=== PATIENT | male | born 1965 | race Caucasian/White ===

== ENCOUNTER 2024-10-04 07:00 | Day surgery (SDC) | payer BC, SELFPAY | END 2024-10-04 09:25 | disposition home or self-care (01) | LOC: CATH 07:00 | PROVIDERS: ATTENDING PHYSICIAN Internal Medicine Cardiovascular Disease; FAMILY PHYSICIAN Family Medicine; OTHER PHYSICIAN Internal Medicine Cardiovascular Disease | DX: I48.91 Unspecified atrial fibrillation (principal); I08.3 Combined rheumatic disorders of mitral, aortic and tricuspid valves; R93.1 Abnormal findings on diagnostic imaging of heart and coronary circulation; Z79.01 Long term (current) use of anticoagulants | CPT/HCPCS: 93312; 93320; 93325 ==

== ENCOUNTER → 2024-10-11 12:00 | Outpatient (REF) | payer BC, SELFPAY | LOC: DHSLP 12:00 | PROVIDERS: ATTENDING PHYSICIAN Internal Medicine Cardiovascular Disease; FAMILY PHYSICIAN Family Medicine | DX: G47.30 Sleep apnea, unspecified (principal); R06.83 Snoring | CPT/HCPCS: 95800 ==

== ENCOUNTER 2024-11-21 07:12 | Day surgery (SDC) | payer BC, SELFPAY ==
--- NOTE | 2024-11-25 13:00 | ITS.CL.CARDI ---
Shuttle Repairer - Cardioversion
Cardioversion
Procedure Report:
Date of Procedure: 11/21/24
Procedure: Cardioversion
Indication: Symptomatic atrial fibrillation
Performing Physician: Katherine Haji DO [facility]
Anticoagulation: Eliquis
Preprocedure transesophageal echocardiogram:
Mildly reduced left ventricular systolic function with global hypokinesis.
Left ventricular ejection fraction visually estimated 45%
Normal right ventricular size with low normal RV systolic function.
Biatrial dilatation
Left atrial appendage without definite thrombus
Mild mitral regurgitation
Trace tricuspid regurgitation
Trileaflet, mildly sclerotic aortic valve with trace aortic regurgitation
Estimated pulmonary artery systolic pressure 30 mmHg assuming a right atrial pressure of 3 mmHg.
Intact interatrial septum without shunt by color-flow Doppler.
Compared to prior transesophageal echocardiogram dated 10/04/2024, LV ejection fraction remains similar, previously estimated 45-50%. Left atrial appendage findings similar however following interrogation of the left atrial appendage in multiplane
2D views and 3D views, no definite left atrial appendage thrombus identified. Okay to proceed with planned cardioversion
Technique: The patient was brought to the holding area. Signed informed consent was obtained. A time out was called and performed. The patient was anesthetized by the anesthesia service. Transesophageal echocardiogram without definite left atrial
appendage thrombus. Anticoagulation status was reviewed and appropriate. R2 pads were placed anteriorly and posteriorly. A 200 J synchronized biphasic shock restored normal sinus rhythm without significant bradycardia. There were no complications.
Conclusion: Uncomplicated cardioversion from atrial fibrillation to sinus rhythm.
Recommendation: Routine post cardioversion care. Continue [facility] anticoagulation.
== END 2024-11-21 10:35 ==
LOC: CATH 07:12
PROVIDERS: ATTENDING PHYSICIAN Internal Medicine Cardiovascular Disease
DX: I48.91 Unspecified atrial fibrillation (principal); I08.3 Combined rheumatic disorders of mitral, aortic and tricuspid valves; Z79.01 Long term (current) use of anticoagulants; E78.2 Mixed hyperlipidemia
CPT/HCPCS: 93312; 93320; 93325; 92960; 93005

== ENCOUNTER 2025-02-26 08:54 | Day surgery (SDC) | payer BC, SELFPAY ==
[2025-01-31 13:18] LABS: % Basophils 0.6 % (0-2); % Eosinophils 1.5 % (0-6); % Immature Granulocytes 0.2 % (0-0.5); % Lymphocytes 28.6 % (20.5-51.1); % Monocytes 9.3 % (1.7-9.3); % Neutrophils 59.8 % (42.2-75.2); Absolute Basophils 0.1 10^3/uL (0-0.2); Absolute Eosinophils 0.1 10^3/uL (0-0.7); Absolute Lymphocytes 2.3 10^3/uL (1.2-3.4); Absolute Monocytes 0.8 10^3/uL (0.1-0.6); Absolute Neutrophils 4.9 10^3/uL (1.4-6.5); Hematocrit 43.6 % (39.0-52.0); Hemoglobin 14.4 g/dL (13.0-18.0); Mean Corpuscular Hgb 28.8 pg (27.0-31.0); Mean Corpuscular Volume 87.2 fL (80.0-94.0); Mean Platelet Volume 9.9 fL (7.4-10.4); Nucleated Red Blood Cells % 0 % (-); Platelet Count 248 10^3/uL (130-400); Red Cell Dist. Width 12.7 % (11.5-14.5); White Blood Cell Count 8.2 10^3/uL (4.8-10.8)
[2025-01-31 13:30] LABS: PT 14.5 Sec (11.4-14.6)
[2025-01-31 13:32] LABS: ALT (SGPT) 19 U/L (0-50); AST (SGOT) 22 U/L (17-59); Albumin 4.4 g/dl (3.5-5.0); Alkaline Phosphatase 109 U/L (38-126); Blood Urea Nitrogen 20 mg/dl (9-20); Calcium 9.4 mg/dl (8.4-10.2); Carbon Dioxide 31 mmol/L (22-30); Chloride 105 mmol/L (98-107); Estimated Creatinine Clearance 96 ml/min; Glucose 91 mg/dl (70-99); Magnesium 2.1 mg/dl (1.6-2.3); Potassium 4.6 mmol/L (3.5-5.1); Sodium 139 mmol/L (135-145); Total Bilirubin 0.3 mg/dl (0.2-1.3); Total Protein 7.4 g/dl (6.3-8.2); eGFR > 60.00
[2025-02-26] VITALS (13 sets, daily range): BP systolic 100–128; BP diastolic 68–82
--- NOTE | 2025-02-26 11:29 | ITS.CL.ABL ---
Electrotyper - Ablation
Ablation
Procedure Report:
Primary Care: Dr Augustin Sarkar
Procedure Date: 02/26/2025
Patient History:
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
See H&P for complete details.
Indication:
Symptomatic persistent AF
Cardiomyopathy
Arrhythmia Specific History:
Prior Medical Therapies for Rate and Rhythm Control:
X Beta-tito
[ ] Calcium channel-tito
[ ] Amiodarone
[ ] Dronederone
[ ] Sotalol
[ ] Flecainide
[ ] Dofetilide
[ ] Options limited by bradycardia
[ ] Options limited by comorbid renal disease
Prior Procedural Therapies for AF/AFL:
X Cardioversion
[ ] Pulmonary Vein Isolation
[ ] Posterior Wall Isolation
[ ] Additional lines (Specify)
[ ] Surgical Deutsch-MAZE or PVI (Specify)
Procedure Performed:
X AF ablation procedure (66966) -- includes LA/CS pacing, trans-septal, 3D mapping, + ICE
[ ] +IV drug (31382)
[ ] +Other Arrhythmia (48168)
X +Other AF Line/ablation (86081 x2) -- Floor line, roof line, and posterior wall
Risks and expected recovery has been explained in detail. Alternative options have been explored, and in a shared-decision making fashion we have decided that this was the most appropriate procedure.
Method
NPO status confirmed. Grounding pad applied. Defibrillator pads applied. Continuous surface ECG, pulse oximetry, and blood pressure were monitored. Procedure was performed under general anesthesia, with anesthesia services.
Both groins were clipped, prepped with Chloraprep, and draped in sterile fashion. Time out was called. Local anesthesia administered with bupivacaine. The right femoral vein was accessed for catheter placement, using ultrasound guidance (images
saved to record), micro-puncture needle/wire, and modified seldinger technique. 3 sheaths were placed. The following catheters were used:
[ ] Tacticath SE (D/F Curve) ablation catheter
X Viewflex 9Fr ICE catheter
X Inquiry decapolar 6Fr diagnostic catheter
[ ] CRD Hex 6Fr
[ ] Arctic Front Advance Cryoballoon ([ ]28mm[ ]23mm)
[ ] Achieve Advance mapping catheter ([ ]15mm[ ]20mm)
X FlexCath Contour 10 Fr with PulseSelect PFA Catheter
X Advisor HD Grid Mapping Catheter, SE
[ ] AcusTransGenRx AcuNav 8 Fr ICE catheter
[ ]Other: [ ]
Intracardiac ultrasound (ICE) was carefully advanced into the right atrium to guide sheath placement over a J-wire, catheter placement, guide trans-septal puncture, identify potential complications, identify anatomic structures and ensure proper
contact between ablation catheter and tissue.
Heparin was given prior to trans-septal puncture. Heparin was given to achieve and maintain a target ACT of 300-400 seconds throughout the procedure.
Trans-septal access was performed under ICE guidance. The trans-septal puncture was performed with a SafeSept wire through a Brockenbrough needle assembly through the steerable sheath. The wire was visualized as it entered the LSPV and system
advanced under ICE guidance and fluoroscopy into the LA. The Brockenbrough needle assembly, SafeSept wire and sheath dilator were removed under negative pressure. LA pressure was measured and recorded.
ICE and 3D mapping was performed to identify relevant cardiac structures. A careful 3D map was created to assess for regions of low-voltage and abnormal electrogram signals using HD grid mapping catheter and PulseSelect catheter. Additional mapping
was performed as outlined below.
Prior to ablation, glycopyrrolate was provided. PulseSelect catheter was advanced over J-wire to the ostium of each vein. Pulmonary vein isolation was performed with ostial and antral lesions in a circumferential manner. Contact was visualized via
EAM, ICE, fluoroscopy, and EGM signals. Posterior wall isolation was performed by anchoring the J-wire within the pulmonary vein and placing the PulseSelect catheter in contact with the posterior wall as visualized by aforementioned methods. During
ablation, patient went into rapid atrial fibrillation with heart rates in the 190s and synchronized direct-current cardioversion was performed at 200 J with islam of sinus rhythm which maintained the remainder of the procedure. Following
completion of ablation lesions, a post-ablation voltage/activation map was performed in sinus rhythm. Entrance and exit block were confirmed for each vein and the posterior wall.
Catheter and sheath were removed from the left atrium and post-ablation intracardiac echo evaluation was consistent with pre-ablation with no changes and no pericardial effusion and there is no left atrial thrombus or left ventricle thrombus seen.
Electrophysiology study was performed. Hemostasis was obtained with Vascade for each sheath and with manual pressure. Protamine was used for reversal.
Estimated Blood Loss
5 mL
Complications
None
Fluoroscopy: 2.3 minutes; 5.44 mGy; DAP 1.52
LA Pressure: Pre 4 mmHg, post 9 mmHg
Baseline Intervals:
Rhythm: SR
NC: 111 ms
QRS: 127 ms
QT: 435 ms
QTc: 473 ms
A-A: 844 ms
R-R: 844 ms
Post-Procedure Intervals:
NC: 103 ms
QRS: 93 ms
QT: 425 ms
QTc:438 ms
A-A: 943 ms
R-R: 943 ms
AVWB: 320 ms
AERP: 600/270 ms
Recommendations
- Bedrest with straight-leg precautions as ordered
- Anticipate same day discharge if patient meeting clinical metrics
- Resume home medications as indicated
- Ok to resume anticoagulation tonight if patient and groin sites stable
- PPI daily for 30 days
- Plan for follow-up in office as scheduled
- Plan fo repeat TTE in 3 months
Lobito Duenas, DO, FACC, RS
Clinical Cardiac Res Habilitation Assistant
cc: Dr Augustin Sarkar
[2025-02-26 12:22] LABS: ACT-LR - POC 279 Seconds (116-155)
[2025-02-26 12:48] LABS: ACT-LR - POC 274 Seconds (116-155)
[2025-02-26 13:11] LABS: ACT-LR - POC 377 Seconds (116-155)
[2025-02-26 13:30] LABS: ACT-LR - POC 245 Seconds (116-155)
--- NOTE | 2025-02-26 15:48 | W.PN.UPDATE ---
Update Note
Progress Note Update
Pt seen post PFA. Right groin with vascade closure, no ht/bleeding, OOB ambulating, urinating without difficulty. Post EKG NSR 75, no acute changes. Resume eliquis tonight at usual time. Followup at [facility] as scheduled. Home later today if groin
site/tele remain stable.
== END 2025-02-26 16:30 | disposition home or self-care (01) ==
LOC: CATH 08:54
PROVIDERS: ATTENDING PHYSICIAN Internal Medicine Cardiovascular Disease; FAMILY PHYSICIAN Family Medicine
DX: I48.19 Other persistent atrial fibrillation (principal); E78.5 Hyperlipidemia, unspecified; F32.A Depression, unspecified; F41.1 Generalized anxiety disorder; G47.33 Obstructive sleep apnea (adult) (pediatric); I42.8 Other cardiomyopathies; R73.03 Prediabetes; Z79.01 Long term (current) use of anticoagulants; Z79.899 Other long term (current) drug therapy; Z86.14 Personal history of Methicillin resistant Staphylococcus aureus infection
CPT/HCPCS: C1733; C1894; C1732; 36415; 75572; 80053; 83735; 85025; 85347; 85610; 86850; 86900; 86901; 93005; 93656; 93657; C1760; Q9967

== ENCOUNTER → 2025-06-26 07:17 | Outpatient (REF) | payer BC, SELFPAY | LOC: RCS 07:17 | PROVIDERS: ATTENDING PHYSICIAN Internal Medicine Cardiovascular Disease; FAMILY PHYSICIAN Family Medicine | DX: I48.91 Unspecified atrial fibrillation (principal) | CPT/HCPCS: 93306 ==